=== PATIENT | male | born 1945 | race Hispanic/Latino ===

== ENCOUNTER 2018-01-26 09:02 | Outpatient (CLI) | payer MEDICARE | END 2018-01-26 09:03 | disposition home or self-care (01) | LOC: BICRAD 09:02 | PROVIDERS: ATTEND Nurse Practitioner Family | DX: R19.09 Other intra-abdominal and pelvic swelling, mass and lump (principal); I81 Portal vein thrombosis; K80.20 Calculus of gallbladder without cholecystitis without obstruction | CPT/HCPCS: 76700 ==

== ENCOUNTER 2018-02-01 17:40 | Inpatient (IN) | payer MEDICARE ==
[~2018-02-01 17:40] MED LIST: ISOVUE-370 76%-LOCM 1 ML ONE; Iopamidol 370 76% 50 ML VIAL FS ONE
[2018-02-01 18:41] LABS: INR-International Normal Ratio 1.4; PTT 34.5 SEC (22.9-36.1)
[2018-02-01 18:43] LABS: #Eosinphils 0.2 thou/uL (0.0-0.7); #Lymphocytes 1.7 thou/uL (1.20-3.40); #Monocytes 0.7 thou/uL (0.11-0.59); #Neutrophils 5.4 thou/uL (1.40-6.50); %Basophils 0.6 % (0.0-1.0); %Eosinophils 2.4 % (0.0-10.0); %Lymphocytes 20.7 % (21.0-51.0); %Monocytes 8.8 % (0.0-10.0); %Neutrophils 67.5 % (42.0-75.0); Hemoglobin 10.6 g/dL (14.0-18.0); Mean Corpuscular HGB CONC 32.5 g/dL (32.0-36.0); Mean Corpuscular Hemoglobin 31.8 pg (27.0-31.0); Mean Corpuscular Volume 97.9 fl (80.0-94.0); Mean Platelet Volume 7.4 fL (7.4-10.4); Platelet Count 262 thou/uL (130-400); RBC Distribution Width 16.4 % (11.5-14.5); Red Blood Cell (RBC) Count 3.34 mill/uL (4.70-6.10)
[2018-02-01] MEDS ORDERED: Octreotide Acetate 1,250 MCG in Sodium Chloride 0.9% 250 ML 250 ML IVPB SCH ×2 (20:00→22:01)
[2018-02-01 20:11] LABS: Iron 39 ug/dL (65-175); Iron Binding Capacity, Total 219 mcg/dL (261-462)
[2018-02-01 20:27] LABS: #Eosinphils 0.1 thou/uL (0.0-0.7); #Lymphocytes 1.3 thou/uL (1.20-3.40); #Monocytes 0.6 thou/uL (0.11-0.59); #Neutrophils 5.7 thou/uL (1.40-6.50); %Basophils 0.6 % (0.0-1.0); %Eosinophils 1.9 % (0.0-10.0); %Lymphocytes 16.2 % (21.0-51.0); %Monocytes 8.1 % (0.0-10.0); %Neutrophils 73.2 % (42.0-75.0); Hemoglobin 11.2 g/dL (14.0-18.0); Mean Corpuscular HGB CONC 33.3 g/dL (32.0-36.0); Mean Corpuscular Hemoglobin 32.6 pg (27.0-31.0); Mean Corpuscular Volume 97.9 fl (80.0-94.0); Mean Platelet Volume 7.1 fL (7.4-10.4); Platelet Count 288 thou/uL (130-400); Red Blood Cell (RBC) Count 3.42 mill/uL (4.70-6.10); White Blood Cell (WBC) Count 7.7 thou/uL (4.8-10.8)
--- NOTE | 2018-02-01 20:45 | ULT ---
ULTRASOUND ABDOMEN LIMITED: (RIGHT UPPER QUADRANT) 02/01/2018 HISTORY: A 72-year-old male with generalized abdominal pain. Dr. De discussed the findings by telephone with Dr. Goldsmith at the time of this dictation. TECHNIQUE: FINDINGS: There is clot in the upper portion of the portal vein. The common duct is dilated to 12 mm. The liver has diffusely very abnormal, very heterogeneous echogenicity and echotexture, including mul tiple probable small nodules. There is no hydronephrosis of the right kidney. Most of the pancreas is obscured by shadowing from bowel gas. There is a large number of gallstones, ranging in size from a few millimeters up to slightly greater than 1 cm. The gallbladder chester are diffusely at least mildly thickened, slightly greater than 3 mm . Unable to elicit a sonographic Anderson sign because the patient is medicated. IMPRESSION: 1. Portal vein thrombosis. 2. Evidence of biliary obstruction at the common duct. 3. Very abnormal liver, either diffuse, very extensive hepatic metastases or infiltrative hepatocel lular carcinoma. 3. Cholelithiasis. 4. Unable to determine whether or not there is acute cholecystitis. OTILIA Jiménez POS: [facility]
[2018-02-01 21:12] LABS: Ferritin 200.38 ng/mL (22-322)
[2018-02-01] MEDS ORDERED: Ondansetron HCl/PF 4 MG/2 ML Vial IVP PRN (21:53)
[2018-02-01] MEDS ORDERED: Ondansetron ODT 4 MG TAB SL PRN (21:53)
[2018-02-01] MEDS ORDERED: Pantoprazole 80 MG, Admixture Fee 1 EACH in Sodium Chloride 0.9% 100 ML IVP SCH (22:00)
[2018-02-01] MEDS: Sodium Chloride 0.45% 1,000 ML IV SCH (22:29)
--- NOTE | 2018-02-01 22:56 | CT ---
CT ABDOMEN WITH CONTRAST CT PELVIS WITH CONTRAST: DATE: 02/01/2018 TIME: 9:32 p.m. HISTORY: A 72-year-old male with generalized abdominal pain and abnormal ultrasound. TECHNIQUE: IV injection of iodinated contrast media: Administered. Oral contrast media: Not administered. FINDINGS: There is multifocal thrombus in the left portal vein, including its branches. There is also multifoc al thrombus in the right portal vein. There is thrombus filling much of the lumen of the superior me senteric vein, causing occlusion or almost occlusion, and in a branch extending superiorly from the j unction of the main portal vein and the superior mesenteric vein, connected to multiple varices, invo lving the region of the gastrohepatic ligament. These are connected to varices around the gastroesop hageal junction. There is mural thickening of the gallbladder. There are multiple gallstones, a few millimeters in si ze, in the gallbladder fundus. There is a 10 mm calcified gallstone near the gallbladder neck. Ther e is pericholecystic free fluid and/or edema. There are nonopacified branching structures throughout the left lobe and especially the right lobe of the liver, which could either represent intrahepatic biliary ductal dilation. The common duct is di lated (at least 12 mm on the ultrasound). There is a cluster of multiple heterogeneously enhancing m asses in the inferior aspect of the right lobe of the liver, involving hepatic segments 5 and 6. The re is an approximately 3 x 2.5 x 2.5 cm heterogeneous density round mass near the junction between he patic segment 4A and 8. There is diffuse mild dilation of the entire pancreatic duct. No obvious mass at the pancreatic head is visualized. There is a small to moderate amount of free fluid within the dependent, posterior aspect of the intra pelvic cavity, posterior to the urinary bladder and around the rectum. There is edema throughout the mesentery, and a small amount of free fluid along the bilateral paracolic gutters. No small bowel d ilation. Oral contrast material has not yet reached the colon. No pleural effusion. No pneumoperit oneum identified. No abdominal aortic aneurysm. No adrenal mass. IMPRESSION: 1. Portal vein thrombosis involving the left and right main branches of the portal vein. 2. Thrombosis of the superior mesenteric vein. 3. Thrombosis of a varix connected to the junction between the portal vein and the superior mesenter ic vein. 4. Multiple varices, especially along the gastrohepatic ligament. 5. Multiple liver masses, mostly in the right lobe, highly suspicious for malignancy, either liver m etastases or multicentric hepatocellular carcinoma. 6. Cholelithiasis. 7. The possibility of acute cholecystitis is raised. 8. Diffuse dilation of the biliary tree is evidence for obstruction of the common bile duct, perhaps by choledocholithiasis. OTILIA Jiménez POS: [facility]
[2018-02-01] MEDS: cefTRIAXone\\ROCEPHIN 1 GM in Sodium Chloride 0.9% 100 ML IVPB SCH (23:00)
[2018-02-01] MEDS: Pantoprazole 80 MG in Sodium Chloride 0.9% 100 ML IVP SCH (23:01)
[2018-02-02 00:51] LABS: #Eosinphils 0.1 thou/uL (0.0-0.7); #Monocytes 0.7 thou/uL (0.11-0.59); #Neutrophils 5.5 thou/uL (1.40-6.50); %Basophils 0.4 % (0.0-1.0); %Eosinophils 1.6 % (0.0-10.0); %Neutrophils 74.9 % (42.0-75.0); Hemoglobin 9.9 g/dL (14.0-18.0); Mean Corpuscular HGB CONC 32.2 g/dL (32.0-36.0); Mean Corpuscular Hemoglobin 31.7 pg (27.0-31.0); Mean Corpuscular Volume 98.2 fl (80.0-94.0); Mean Platelet Volume 7.4 fL (7.4-10.4); Platelet Count 250 thou/uL (130-400); Red Blood Cell (RBC) Count 3.12 mill/uL (4.70-6.10); White Blood Cell (WBC) Count 7.3 thou/uL (4.8-10.8)
[2018-02-02 01:28] LABS: Hep A IgM AB Non-Reactive (NonReactive); Hep B Core Total Ab Non-Reactive (NonReactive); Hep B Surf AB Non-Reactive (NonReactive); Hep B Surf Ag Non-Reactive S/CO (NonReactive); Hepatitis B Core IGM Abs Non-Reactive (NonReactive)
--- NOTE | 2018-02-02 01:39 | CON ---
DATE OF CONSULTATION: 02/01/2018 CHIEF COMPLAINT: Weakness and vomited black material. HISTORY OF PRESENT ILLNESS: Mr. Patten is a 72-year-old man, who vomited a reddish black material s tarting early this morning, once at 4:00 a.m. and once at 6:00 a.m. He had a black stool later today as well. He has had some periumbilical abdominal pain over the last couple of weeks that last for a few minutes at a time several times throughout the day. He has had some diarrhea once per day over the last couple of weeks as well and he has urgency after eating. He has had no chest pain or shortn ess of breath. He has had some gradual weight loss over several years, but his son believes his weig ht has been stable over the last 6 months or so. The abdominal pain is more of an aching discomfort. PAST MEDICAL HISTORY: Hypertension and alcoholism. PAST SURGICAL HISTORY: Hernia repair x2 and neck surgery. FAMILY HISTORY: Positive for pancreatic cancer in his brother and his brother's son. SOCIAL HISTORY: He drinks 12-pack per day. He smokes a pack of cigarettes per day. No drugs. ALLERGIES: No known drug allergies. MEDICATIONS: Benazepril 10 mg daily. REVIEW OF SYSTEMS: Negative x10 systems reviewed except as stated in the history of present illness. He has had generalized weakness over the last couple of weeks. PHYSICAL EXAMINATION: VITAL SIGNS: Pulse 90, blood pressure 88/49, temperature 97.9. GENERAL: He is jaundiced. He is in no acute distress. He is awake and alert. HEENT: His eyes have scleral icterus. Oropharynx is clear, without lesions. He is edentulous. NECK: There is no cervical or supraclavicular lymphadenopathy. LUNGS: Clear to auscultation bilaterally. HEART: Regular rate and rhythm. ABDOMEN: Soft, nontender. He has an enlarged liver and also in the epigastric region there is a fir mness in this area, suggestive of possible mass versus hepatomegaly or organomegaly in that area. EXTREMITIES: No lower extremity edema. RECTAL: Reveals normal prostate and some black liquidy stool in the vault. LABORATORY DATA: Sodium 135, potassium 3.6, chloride 100, CO2 of 21, BUN 33, creatinine 0.78, biliru bin 12.7, AST 221, ALT 43, alkaline phosphatase 160, albumin 2.9. INR 1.4. White blood cell count 8 .0, hemoglobin 10.6, platelets 262, MCV 97.9. IMPRESSION: 1. Acute upper gastrointestinal bleed, presenting with hematemesis and melena. His hemoglobin is 10 .6. The only baseline hemoglobin is from 2012 when his hemoglobin was 17. He does have some hypoten filomena with this with a blood pressure in the 80s/40s. He is receiving fluid resuscitation for that. Given the history of alcohol abuse and elevated liver tests, variceal bleed is possible. We will als o need to evaluate for peptic ulcer or gastritis. 2. Jaundice. With elevated AST and heavy alcohol abuse, this is consistent with an acute alcoholic hepatitis. This could be on top of underlying cirrhosis; however, he does not have low platelets and does not have obvious spider angiomas. 3. Hepatomegaly and fullness in the epigastric region by physical exam. Rule out a mass in this are a. He does have a brother who had pancreatic cancer and his brother's son had pancreatic cancer. RECOMMENDATIONS: 1. Octreotide drip. 2. Proton pump inhibitor drip. 3. We will send labs for further evaluation for chronic liver disease including viral hepatitis pane l and autoimmune markers. 4. CT scan of the abdomen and pelvis to evaluate for pancreatic mass and evaluate for obvious nodula rity of the liver. 5. EGD tomorrow. 6. Follow trend of the hemoglobin.
[2018-02-02 01:53] LABS: HBCM Index 0.08 S/CO (0-0.79)
--- NOTE | 2018-02-02 02:21 | HP ---
PRIMARY CARE PHYSICIAN: Dr. Meyer at [facility] in [place]. CHIEF COMPLAINT: Vomiting blood as well as having dark stools. HISTORY OF PRESENT ILLNESS: Mr. Patten is a very pleasant 72-year-old gentleman that has a history of heavy alcohol use over several decades and also history of hypertension. He was in his usual state of health until this morning he says about 4:00 a.m., he got up and threw up twice. He says it was some darkish colored material. There were also some reddish hints in it as well. He denies having any nausea or abdominal pain during this time. He says that he went back to sleep and then about 6:00 a.m. he got up once again and vomited as well. He says it was again dark and red. Also, during this time, he has been having dark stools off and on for the past 2 weeks. He says that the stools are more or less diarrhea-like and dark in color. He also admitted to having some abdominal pain, he was having this pain off and on for the past couple of weeks and had planned to see a supervisor in circuit testing to have this evaluated; however, this happened prior to this occurrence at this admission. He also has been feeling weak as well. He denies any dizziness or feeling lightheaded. However, he does say that his appetite has diminished. He seems like every time he tries to eat, he will feel an urge to go the bathroom. He says that he has lost a significant amount of weight, it is hard to tell exactly the time frame. He says he was weighing about 140 pounds about 6 months ago and now weighs about 110. Otherwise, no other known complaints. No fevers or chills. He says that his last drink was Thursday. No history of any alcohol withdrawal. He was evaluated in the ER, he was found to have melanotic stools and he has a significant drop in his hemoglobin from prior and he is being admitted for further evaluation and treatment. REVIEW OF SYSTEMS: Constitutional: Again, there have been no fevers, no chills , no night sweats. He has had a significant weight loss. HEENT: He denies any headache, no dizziness, no visual changes, no sore throat, rhinorrhea, no neck pain, no adenopathy. Pulmonary: He says he has an occasional cough, primarily with smoking. No wheezing or shortness of breath. Cardiovascular: He denies any chest pain, shortness of breath, PND, orthopnea. Gastrointestinal : As the history of present illness. Genitourinary: No urinary frequency, no hematuria. Musculoskeletal: No complaints of muscle pains or joint pains. Neurologic: No focal weakness, numbness, no seizures. Psychiatric: No symptoms of anxiety or depression. Skin and Integument: He has noted some yellowing of his skin, he says just in the last day or two. No rashes, no erythema. PAST MEDICAL HISTORY: Significant for hypertension and alcohol abuse. PAST SURGICAL HISTORY: He has had a hernia repair x2 as well as what sounds like a cervical spine surgery. ALLERGIES: No known drug allergies. FAMILY HISTORY: He had a brother with pancreatic cancer as well as a nephew. SOCIAL HISTORY: He admits to drinking at least a 12 pack of beer almost daily for several decades. He smokes a pack a day for at least 50 years. He is . He has 3 children. He wishes to be a [employer] and his son is his surrogate decision maker. MEDICATIONS: Benazepril 10 mg daily. PHYSICAL EXAMINATION: GENERAL: He is alert and oriented. He appears to be in no acute distress. VITAL SIGNS: Blood pressure was 82/53, heart rate is 90, respiratory rate of 20 , temperature is 97.7, O2 sat was 91% on room air. HEENT: His pupils are equal, round, and reactive. Sclerae are icteric. Throat : There is no erythema. Slightly dry mucous membranes. NECK: There was no appreciable adenopathy and no bruits. LUNGS: He did have some mild expiratory rhonchi, but no rales. CARDIOVASCULAR: He has a normal S1, S2. I did not appreciate an S3 or S4. No murmurs, clicks, no rubs. ABDOMEN: Slightly distended, it is soft. It was nontender. Positive for bowel sounds. He has got a significantly enlarged liver span significant about 4-5 cm below the right costal margin and also a fullness in the mid epigastric region. There is no rebound or guarding. EXTREMITIES: He has got significant muscle wasting. There was no edema and palpable pulses. LABORATORY RESULTS: White blood cell count was 8, hemoglobin 10.6, hematocrit is 32.7, and platelet count is 262. The sodium is 135, potassium 3.6, chloride is 100, CO2 is 21, BUN of 33, creatinine of 0.78, glucose is 78, AST is 221, ALT is 43. His bilirubin was 12.7, albumin 2.9. He had an ultrasound several days prior to admission in which it was noted to have a very heterogeneous liver. There was trace ascites and multiple cholelithiasis and fairly extensive thrombus involving the main portal vein. This was done on 01/26/2018. ASSESSMENT AND PLAN: This is a pleasant 72-year-old gentleman who presents to the emergency room with hematemesis. This is in the setting of multiple years of alcohol abuse, but no known history of cirrhosis. The patient will be admitted to the IMCU. He has been already placed on octreotide and Protonix drip. Gastroenterology will be consulted. We will monitor his H&H and transfuse as needed. The patient will also be placed on Rocephin, given the possibility for cirrhosis as well as he may have ascites. Unfortunately, due to the acute bleed, he will not be anticoagulated for the findings of the possible hepatic portal vein thrombosis on the ultrasound on 01/26/2018. This will need to be deferred and evaluated further. Otherwise, the patient will be monitored in the IMCU and further recommendations from GI are to follow. VANIA
[2018-02-02 02:24] LABS: HBSAg Index 0.15 S/CO (0-0.99); Hep B Core Total Index 0.12 S/CO (0-0.79)
[2018-02-02 02:25] LABS: HBSAB Concentration 1.14 mIU/mL
[2018-02-02 02:26] LABS: Hep A IgM S/CO 0.12 S/CO (0-0.79)
[2018-02-02 02:28] LABS: Hep C Index 13.33 S/CO (0-0.79)
[2018-02-02 02:29] LABS: Hep C IgG Ab Reflex HepC Qnt (NonReactive)
[2018-02-02 05:01] LABS: Anion Gap 13 mmol/L (10-20); BUN (Urea Nitrogen) 28 mg/dL (8.4-25.7); Calc. Creatinine Clearance 56 mL/min (70-130); Calcium 7.9 mg/dL (7.8-10.44); Carbon Dioxide 20 mmol/L (23-31); Chloride 105 mmol/L (98-107); Estimated GFR-MDRD Greater than 90; Glucose 72 mg/dL (83-110); Potassium 3.6 mmol/L (3.5-5.1); Sodium 134 mmol/L (136-145)
[2018-02-02] MEDS: Sodium Chloride 0.45% 1,000 ML IV SCH (05:49)
[2018-02-02] MEDS: Pantoprazole 80 MG in Sodium Chloride 0.9% 100 ML IVP SCH (08:28)
--- NOTE | 2018-02-02 08:43 | PDOC.PN ---
- Subjective Encounter Start Date: 02/02/18 Encounter Start Time: 08:38 Mr. Patten was seen today in follow-up. He has not had any hematemesis this morning. He denies any melana, and he has not had abdominal pain. - Objective Resuscitation Status: Resuscitation Status FULL:Full Resuscitation MAR Reviewed: Yes Vital Signs & Weight: Vital Signs (12 hours) Temp Pulse Resp BP Pulse Ox 02/02/18 08:00 98.6 F 75 17 100 02/02/18 07:28 98.6 F 75 17 89/47 L 100 02/02/18 04:00 98.1 F 81 18 100/55 L 100 02/02/18 03:04 100 02/02/18 01:46 89 18 100 02/02/18 00:00 98.0 F 85 18 97/52 L 98 02/01/18 22:30 98.0 F 85 18 99 02/01/18 21:55 97.9 F 94 20 112/58 L 100 Weight Weight 110 lb 14.4 oz I&O: 02/01/18 02/02/18 02/03/18 06:59 06:59 06:59 Intake Total 1510 Output Total 450 Balance 1060 Result Diagrams: 02/02/18 00:28 02/02/18 04:20 Phys Exam - Physical Examination HEENT: PERRLA sclera are jaundice Respiratory: no wheezing, no rales, no rhonchi, clear to auscultation bilateral Cardiovascular: RRR, no significant murmur, no rub Gastrointestinal: soft, positive bowel sounds + RUQ tenderness, Liver span is enlarged + fullness in the epigastric region Musculoskeletal: no edema Dx/Plan (1) GI bleed Code(s): K92.2 - GASTROINTESTINAL HEMORRHAGE, UNSPECIFIED Status: Acute (2) Acute blood loss anemia Code(s): D62 - ACUTE POSTHEMORRHAGIC ANEMIA Status: Acute (3) Alcohol abuse Code(s): F10.10 - ALCOHOL ABUSE, UNCOMPLICATED Status: Acute (4) Liver mass, right lobe Code(s): R16.0 - HEPATOMEGALY, NOT ELSEWHERE CLASSIFIED Status: Acute (5) Hypertension Code(s): I10 - ESSENTIAL (PRIMARY) HYPERTENSION Status: Chronic - Plan * Acute blood loss anemia- his H&H dropped slightly overnight, but will not require transfusion at this point- Continue Octreotide drip, and Protonix drip * Plan for EGD today * CT scan results noted- findings suggestive of liver mass, and concerning for hepatocellular carcinoma- will await further GI recommendations * Will monitor for signs of withdrawal, and place on ASE protocol * HTN- blood pressure- lower side- will monitor - Benazepril is on hold.
--- NOTE | 2018-02-02 09:45 | CON ---
DATE OF CONSULTATION: 02/02/2018 This is a 72-year-old gentleman who was brought to the hospital with melena and hemate mesis. He is in the [facility] and the reason for consult. The patient says he has been drinking up to 6 beers on a regular basis for most of his life. Denies any substance abuse. He is weak, he has lost considerable weight. PAST MEDICAL HISTORY: Pertinent for otherwise hypertension. It is unclear who his primary care doct or is. PAST SURGICAL HISTORY: Neck operation and a hernia operation. SOCIAL HISTORY: Tobacco; a pack a day. Alcohol as noted. 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 REVIEW OF SYSTEMS: Otherwise, 10-point unremarkable. PHYSICAL EXAMINATION: GENERAL: He is jaundiced. VITAL SIGNS: Blood pressure 80/60, pulse rate of 80, sats 100%. CHEST: Chest reveals no wheezing or crackles. CARDIAC: Normal S1-S2. No gallops. ABDOMEN: Soft. No masses. He had a CT done of his abdomen which showed multifocal thrombosis in the portal vein, thrombosis in the right portal vein. Multiple ____ was seen, gallbladder was thick. There are multiple gallstones . There is thrombosis of the superior and the septic ring. Multiple liver masses. Right lobe suspicio n of malignancy. Liver mets. There is evidence of dilation of the biliary tree consistent with obst ruction of the common bile duct. LABORATORY DATA: White count 7000, H&H 9 and 30, platelet count 250. His electrolytes are normal. Sodium 134. Hepatitis C antibody was high. IMPRESSION: 1. History of hematemesis and melena. 2. Marked abnormal CT of the abdomen suggestive of liver masses, extensive hepatic vein thrombosis. 3. Tobacco abuse. 4. Marked weight loss. PLAN: Awaiting GI input. In the meantime he was started empiric antibiotics. Octreotide has been i nitiated and Protonix. EGD to be performed today. Pulmonary Critical Care will follow while in the [facility]. This is a 70 minute consultation note, 50% spent in direct patient care.
--- NOTE | 2018-02-02 11:00 | RAD ---
PORTABLE AP CHEST RADIOGRAPH: Date: 02-02-18 History: COPD. Comparison: 08-08-13 FINDINGS: Cardiac silhouette is within normal limits. Cardiac silhouette and pulmonary vasculature are within n ormal limits. There are irregular linear and parenchymal opacities seen within the right upper lung z one with asymmetric right apical pleural thickening. Scattered linear densities are also seen within the left upper and mid lung zones as well as right lung base. Findings are likely related to chronic lung changes given stability when compared to study in 2013. Calcified granuloma is again seen in the left midlung zone. Osteopenia is present. No other interval change. IMPRESSION: 1. Findings likely related to chronic lung changes including stable area of irregular parenchymal opa city as well as pleural based density in the right upper lobe and right lung apex. 2. No acute cardiopulmonary process. 3. Osteopenia. POS: [facility]
[2018-02-02] MEDS ORDERED: Ondansetron HCl/PF 4 MG/2 ML Vial IVP PRN (12:34)
--- NOTE | 2018-02-02 12:58 | OP ---
DATE OF PROCEDURE: 02/02/2018 PROCEDURE: Esophagogastroduodenoscopy (diagnostic). INDICATION FOR PROCEDURE: Hematemesis, recent diagnosis of cirrhosis. DESCRIPTION OF PROCEDURE: After the risks and benefits of the procedure were explained to the patien t including risks of bleeding, infection, perforation, reactions to anesthesia and/or pain, informed consent was obtained. The patient was then taken to the endoscopy suite where deep sedation was admi nistered via propofol and anesthesia support. After adequate sedation was achieved, the standard gas troscope was then introduced into the mouth with intubation of the esophagus, stomach, and the proxim al small intestine with the findings listed below. The patient tolerated the procedure well with no immediate perioperative complications. FINDINGS: Esophagus: Normal-appearing mucosa was seen in both the proximal and mid esophagus, small (grade 1) esophageal varices were seen in the distal esophagus just proximal to the GE junction. There was no evidence of red sung sign or other high-risk stigmata of active/recent bleeding. No intervention was taken on these varices given their small size and lack of evidence of bleeding. The diaphragmatic p inch was seen at 42 cm while the GE junction was well seen at 39 cm denoting a 3 cm hiatal hernia. Stomach: Diffuse mucosal erythema was seen in the gastric cardia, fundus, body, incisura, and antrum in a mosaic pattern that was mildly friable to the passage of the gastroscope, especially upon sucti oning the mucosa itself. There was no evidence of active/recent bleeding seen during this portion of the examination. There is no evidence of erosions, ulcerations, or mass lesions. However, on gastr ic retroflexion, nodular-appearing mucosa was seen at the GE junction with a purplish hue concerning for the presence of gastric varices. Duodenum: Normal-appearing mucosa was seen in both the duodenal bulb and second portion of the duode num. There was no evidence of erosions, ulcerations, mass lesions, or active/recent bleeding. IMPRESSION: 1. Moderate portal hypertensive gastropathy that was friable to the passage of the gastroscope (like ly source of recent hematemesis). 2. Small esophageal varices (grade 1) without high-risk stigmata of bleeding. 3. Possible gastric varices also without high-risk stigmata of bleeding. 4. A 3 cm hiatal hernia. RECOMMENDATIONS: 1. We would continue patient on PPI, but transfer to twice daily dosing 40 mg each and can discontin ue the PPI drip. 2. Discontinue the octreotide drip, given lack of evidence of variceal bleeding at this time. 3. We would consider placing patient on nonselective beta blockade for the presence of moderate port al hypertensive gastropathy. 4. Continue to monitor clinically for signs of active gastrointestinal bleeding. 5. We will continue to trend H and H and transfuse as necessary to maintain an H and H of 03/06. 6. We would continue ceftriaxone 1 gram daily for at least 5 days total therapy given evidence of re cent gastrointestinal bleeding in a cirrhotic patient. 7. Follow up on labs for chronic liver disease. 8. Follow up on CT scan of the abdomen and pelvis to evaluate for possible pancreatic mass and evalu ate for nodularity of the liver. We will continue to follow. Please call with any questions.
[2018-02-02] MEDS ORDERED: Lidocaine 1% PF 5 ML VIAL ONE (13:14)
[2018-02-02] MEDS ORDERED: PROPOFOL 200 MG/20 ML VIAL ONE (13:14)
[2018-02-02 13:53] VITALS: BMI 19.0
--- NOTE | 2018-02-02 14:41 | PQF ---
CLINICAL DOCUMENTATION IMPROVEMENT CLARIFICATION FORM: ICD-10 Updated PLEASE DO AN ADDENDUM TO THE PROGRESS NOTE WITH ANY DOCUMENTATION UPDATES OR ADDITIONS AND CARRY THROUGH TO DC SUMMARY. THANK YOU. Date: 02/02/18 ATTN: DR. SPICER Please exercise your independent, professional judgment in responding to the clarification form. Clinical indicators are provided on the bottom of this form for your review Please check appropriate box(s): [ X ] Protein Calorie Malnutrition: [ ] Mild [ X] Moderate [ ] Severe [ ] Other Malnutrition (please specify) __ [ ] Underweight without malnutrition [ ] Cachexia [ ] Other diagnosis [ ] Unable to determine In addition, please specify: Present on Admission (POA): [X ] Yes [ ] No [ ] Unable to determine CLINICAL INDICATORS - SIGNS / SYMPTOMS / LABS DIETARY ASSESSMENT 02/02: "KCAL AND G PROTEIN NEEDS NOT MET" BMI 19.0 RISKS: ALCOHOL ABUSE RECENT WEIGHT LOSS MULTIPLE LIVER MASSES WITH HIGH SUSPICION FOR MALIGNANCY RECENT GI BLEEDING TREATMENT: DIETARY CONSULTS DIETARY RECOMMENDATIONS FOR DIETARY SUPPLEMENTS ONCE DIET ADVANCED GI CONSULTS ANTIEMETICS Moderate Malnutrition (in acute illness) Energy Intake: <75% of estimated energy requirement for > 7 days Weight Loss: 1-2%/1 week; 5%/ 1 month; 7.5%/3 months Other: mild body fat loss; mild muscle mass loss; mild fluid accumulation; Severe Malnutrition (in acute illness) Energy Intake: < 50% of estimated energy requirement for > 5 days Weight Loss: >1-2%/1 week; >5%/1 month; >7.5%/3 months Other: moderate body fat loss; moderate muscle mass loss; moderate- severe fluid accumulation; 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 chief deputy coroner strength Moderate Malnutrition (in chronic illness) Energy Intake: <75% of estimated energy requirement for >1 month Weight Loss: 5%/1 month; 7.5%/3 months; 10%/6 months; 20%/1 year Other: mild body fat loss; mild muscle mass loss; mild fluid accumulation Severe Malnutrition (in chronic illness) Energy Intake: <75% of estimated energy requirement for >1 month Weight Loss: >5%/1 month; >7.5%/3 months; >10%/6 months; >20%/1 year Other: severe body fat loss; severe muscle mass loss; severe fluid accumulation ; measurably reduced chief deputy coroner strength (This form is maintained as a part of the permanent medical record) 2014 [employer]. All Rights Reserved ISI [email or web address] Office: [phone] [facility]
[2018-02-02] MEDS ORDERED: Lorazepam 0.5 MG TAB PO PRN (15:50)
[2018-02-02] MEDS ORDERED: Lorazepam 2 MG/ML VIAL SLOW IVP PRN (15:50)
[2018-02-02] MEDS: Pantoprazole 40 MG VIAL IVP SCH (20:33)
[2018-02-02] MEDS: cefTRIAXone\\ROCEPHIN 1 GM in Sodium Chloride 0.9% 100 ML IVPB SCH (22:42)
[2018-02-03 05:26] LABS: #Basophils 0.1 thou/uL (0.0-0.2); #Eosinphils 0.3 thou/uL (0.0-0.7); #Lymphocytes 0.9 thou/uL (1.20-3.40); #Monocytes 0.6 thou/uL (0.11-0.59); #Neutrophils 4.1 thou/uL (1.40-6.50); %Basophils 1.7 % (0.0-1.0); %Eosinophils 5.4 % (0.0-10.0); %Lymphocytes 14.6 % (21.0-51.0); %Neutrophils 68.4 % (42.0-75.0); Hemoglobin 10.3 g/dL (14.0-18.0); Mean Corpuscular HGB CONC 32.5 g/dL (32.0-36.0); Mean Corpuscular Hemoglobin 32.3 pg (27.0-31.0); Mean Corpuscular Volume 99.4 fL (78.0-98.0); Mean Platelet Volume 7.4 fL (7.4-10.4); Platelet Count 245 thou/uL (130-400); RBC Distribution Width 17.7 % (11.5-14.5); White Blood Cell (WBC) Count 5.9 thou/uL (4.8-10.8)
[2018-02-03] MEDS: Multivit, Therapeutic 1 TAB PO SCH (08:37)
[2018-02-03] MEDS: Pantoprazole 40 MG VIAL IVP SCH ×2 (08:37→20:29)
[2018-02-03] MEDS: Folic Acid 1 MG TAB PO SCH (08:37)
--- NOTE | 2018-02-03 08:46 | PRG ---
DATE OF SERVICE: 02/03/2018 He is awake, alert, responsive. PHYSICAL EXAMINATION: VITAL SIGNS: Blood pressure is stable, the low 90/60, sats 100% on 1 liter, respiration 24, temperat ure 97. CHEST: Chest revealed no wheezing or crackles. CARDIAC: Normal S1, S2, no gallops. ABDOMEN: Soft. No masses. LABORATORY: White count 5000, H&H 10 and 30, platelet count 45, tumor marker is markedly elevated. Hepatitis A antibody positive. IMPRESSION: 1. Multiple liver masses. 2. Gastrointestinal bleed. 3. Cirrhosis. PLAN: Pulmonary will follow while in the [facility]. Continue care as per GI. PT and supportive care. P rotonix.
--- NOTE | 2018-02-03 10:08 | PDOC.PN ---
- Subjective Encounter Start Date: 02/03/18 Encounter Start Time: 10:06 Mr. Patten was seen today in follow-up. He has not had any hematemesis today. He has noted some dark stools yesterday and today. He denies abdominal pain. - Objective Resuscitation Status: Resuscitation Status FULL:Full Resuscitation MAR Reviewed: Yes Vital Signs & Weight: Vital Signs (12 hours) Temp Pulse Resp BP Pulse Ox 02/03/18 07:41 97.5 F L 69 24 H 100 02/03/18 07:27 97.5 F L 69 24 H 85/48 L 100 02/03/18 03:42 97.8 F 69 19 90/46 L 100 02/02/18 23:55 98.0 F 75 18 92/51 L 100 Weight Admit Weight 108 lb 3.2 oz Weight 109 lb 9.6 oz I&O: 02/02/18 02/03/18 02/04/18 06:59 06:59 06:59 Intake Total 1510 1600 Output Total 450 530 Balance 1060 1070 Result Diagrams: 02/03/18 04:32 02/02/18 04:20 Phys Exam - Physical Examination HEENT: PERRLA Respiratory: no wheezing, no rales, no rhonchi, clear to auscultation bilateral Cardiovascular: RRR, no significant murmur, no rub Gastrointestinal: soft, non-tender + hepatomegaly Musculoskeletal: no edema Dx/Plan (1) GI bleed Code(s): K92.2 - GASTROINTESTINAL HEMORRHAGE, UNSPECIFIED Status: Acute (2) Acute blood loss anemia Code(s): D62 - ACUTE POSTHEMORRHAGIC ANEMIA Status: Acute (3) Alcohol abuse Code(s): F10.10 - ALCOHOL ABUSE, UNCOMPLICATED Status: Acute (4) Liver mass, right lobe Code(s): R16.0 - HEPATOMEGALY, NOT ELSEWHERE CLASSIFIED Status: Acute (5) Hypertension Code(s): I10 - ESSENTIAL (PRIMARY) HYPERTENSION Status: Chronic - Plan * GI bleed- likely from esophageal varices.- he had no sigmata concerning for re -bleed, and the Octreotide drip has been discontinued * Continue Protonix twice a day * Liver Mass- AFP is elevated- likely hepatocellular Carcinoma- defer to GI * ontinue Rocephin until Thursday for SBP Prophylaxis * PT- to get him mobilized
[2018-02-03 11:25] LABS: ANA Symphony (Qualitative) Negative (Negative); EliA Vaculitis New Method **** NEW METHOD ****; dsDNA IgG Antibody 1.5 IU/mL (<10 Negative)
--- NOTE | 2018-02-03 18:27 | PRG ---
DATE OF SERVICE: 02/03/2018 SUBJECTIVE: Mr. Patten had one black stool today. He has no abdominal pain or other complaints cur rently. OBJECTIVE: VITAL SIGNS: Temperature 97.9, pulse 66, blood pressure 106/59. GENERAL: He is in no acute distress, alert and oriented x3. LUNGS: Clear to auscultation bilaterally. HEART: Regular rate and rhythm. ABDOMEN: Soft, nontender, nondistended, bowel sounds are present. EXTREMITIES: No lower extremity edema. LABORATORY DATA: Creatinine 0.81, alpha fetoprotein is 123,000. INR 1.4, his hepatitis C antibody w as positive. White blood cell count 5.9, hemoglobin 10.3, platelets 245. IMPRESSION: 1. Hepatocellular carcinoma. The markedly elevated alpha fetoprotein in conjunction with a CT showi ng multiple liver masses confirms the diagnosis. He will not require a liver biopsy. He is not a ca ndidate for transplant or given the size and numerous masses in the liver and with portal vein thromb osis, treatment is limited. Hematology will be consulted to discuss options of chemotherapy. 2. Alcohol abuse and hepatitis C antibody. 3. Cirrhosis. 4. Esophageal varices with possible gastric varix. The bleeding appeared to be more likely from por jamilah hypertensive gastropathy. This appears to be resolved for now. His hemoglobin is stable. RECOMMENDATIONS: 1. Oncology consultation tomorrow. 2. Depending on Oncology recommendations, we could potentially discharge home tomorrow.
[2018-02-03] MEDS: cefTRIAXone\\ROCEPHIN 1 GM in Sodium Chloride 0.9% 100 ML IVPB SCH (22:02)
[2018-02-04] MEDS: Folic Acid 1 MG TAB PO SCH (08:39)
[2018-02-04] MEDS: Multivit, Therapeutic 1 TAB PO SCH (08:39)
[2018-02-04] MEDS: Pantoprazole 40 MG VIAL IVP SCH (08:40)
--- NOTE | 2018-02-04 09:40 | PDOC.PN ---
- Subjective Encounter Start Date: 02/04/18 Encounter Start Time: 09:33 Mr. Patten was seen today in follow-up. He does not have any complaints. He denies any vomiting, he is not in pain. - Objective Resuscitation Status: Resuscitation Status FULL:Full Resuscitation MAR Reviewed: Yes Vital Signs & Weight: Vital Signs (12 hours) Temp Pulse Resp BP Pulse Ox 02/04/18 08:00 98 02/04/18 07:32 97.5 F L 84 18 135/69 96 02/04/18 03:58 97.7 F 68 19 105/55 L 96 02/04/18 00:00 98.0 F 70 18 99/53 L 97 Weight Admit Weight 108 lb 3.2 oz Weight 111 lb I&O: 02/03/18 02/04/18 02/05/18 06:59 06:59 06:59 Intake Total 1600 910 Output Total 530 370 Balance 1070 540 Result Diagrams: 02/03/18 04:32 02/02/18 04:20 Phys Exam - Physical Examination HEENT: PERRLA Respiratory: no wheezing, no rales, no rhonchi, clear to auscultation bilateral Cardiovascular: RRR, no significant murmur Gastrointestinal: soft, non-tender, positive bowel sounds Musculoskeletal: no edema Dx/Plan (1) GI bleed Code(s): K92.2 - GASTROINTESTINAL HEMORRHAGE, UNSPECIFIED Status: Acute (2) Acute blood loss anemia Code(s): D62 - ACUTE POSTHEMORRHAGIC ANEMIA Status: Acute (3) Alcohol abuse Code(s): F10.10 - ALCOHOL ABUSE, UNCOMPLICATED Status: Acute (4) Liver mass, right lobe Code(s): R16.0 - HEPATOMEGALY, NOT ELSEWHERE CLASSIFIED Status: Acute (5) Hypertension Code(s): I10 - ESSENTIAL (PRIMARY) HYPERTENSION Status: Chronic - Plan * Hepatocellular Carcinoma- Awaiting Oncology input, but it appears his cancer is advanced * GI- bleed- his H&H has been stable so far, and there has been no signs of recurrent bleed. * I spoke with the patient at his request with regards to his prognosis, and how to proceed. I told he he may be able to make a more informed decision after speaking with the Oncologist. He says he would rather " be at home " and says " he has lived his life and is planning to be arrangements for his children so they will know how to handle his possessions" I asked him about his code status and what he would want , given the new information regarding the Hepatocellular Carcinoma. He tells me he would NOT want to be resuscitated. Will therefore change his code status to DNR. ( ACP time 15 minutes) * Continue Rocephin for one more day for a total of 5 as recommended by Gastroenterology * Continue Protonix, and consider changing to p.o. * HTN- blood pressure is stable .
[2018-02-04 10:52] VITALS: TEMP 97.2
[2018-02-04 12:17] LABS: HCV log10 1.778 (.); Hep C PCR-Quant 60 IU/mL (.)
--- NOTE | 2018-02-04 12:29 | PRG ---
DATE OF SERVICE: 02/04/2018 SUBJECTIVE: This morning, awake, alert, and responsive. No pain, no discomfort, no shortness of sathish ath. OBJECTIVE: VITAL SIGNS: Sats are 90% on 1 liter, temperature 97, respirations 18, blood pressure 130/69. CHEST: Decreased breath sounds, no wheezing. CARDIAC: Normal S1 and S2. No gallops. ABDOMEN: Distended, ascites, enlarged liver. IMPRESSION: 1. Hepatitis. 2. Multiple liver masses, status post endoscopy. PLAN: The patient can be transferred out of the MICU. Await input from Oncology. Switch over to or al antibiotics.
--- NOTE | 2018-02-04 12:43 | CON ---
DATE OF CONSULTATION: 02/04/2018 REASON FOR CONSULTATION: Hepatoma. HISTORY OF PRESENT ILLNESS: Mr. Patten is a pleasant 72-year-old gentleman with a history of long-t erm alcohol use. He presented to the emergency room on with hemoptysis and melena. His bilirub in was 12.7. He was clearly jaundiced. He had an abdominal ultrasound performed, which showed a pos sible mass in portal vein thrombus. He then underwent an abdominal and pelvis CT. The portal vein t hrombus was confirmed and involved the left and right main branches of the portal vein. He had throm bosis of the superior mesenteric vein. He had thrombosis of the varix connected to the junction betw een the portal vein and the superior mesenteric vein. He had multiple liver masses, dilatation of th e biliary tree and multiple varices. He was seen by GI who performed an EGD. Again noted portal hyp ertensive gastropathy with esophageal varices and gastric varices. He was on a Protonix and octreoti de drip and AFP was performed and returned a value of 123,182. This was diagnostic for hepatocellula r carcinoma. We were asked to discuss possible options with the patient. PAST MEDICAL HISTORY: 1. Hypertension. 2. Alcohol use. PAST SURGICAL HISTORY: Hernia repair. ALLERGIES: No known drug allergies. HOME MEDICATIONS: Benazepril 10 mg daily. FAMILY HISTORY: A brother with pancreatic cancer. SOCIAL HISTORY: Single, lives alone, drinks at least a 12-pack of beer daily, 60-[id number]-vvpl history o f smoking, 3 grown children. REVIEW OF SYSTEMS: Constitutional: No fever, chills or night sweats. Positive for 30-pound weight loss. Eyes: No blurred or double vision. ENT: No pain, hoarseness, sore throat, or dysphagia. Ca rdiovascular: No chest pain, palpitations or syncope. Respiratory: Denies shortness of breath, dys pnea on exertion or orthopnea. Gastrointestinal: Positive for nausea, vomiting. No diarrhea or con stipation. Positive for occasional abdominal pain. Genitourinary: No dysuria or hematuria. Muscul oskeletal: No joint or back pain. Skin: No rash or pruritus. Hematological: Positive for bleedin g, no bruising. Neurologic: Positive for weakness, no headache, numbness, tingling or seizure activ ity. Psychiatric: No anxiety or depression. PHYSICAL EXAMINATION: VITAL SIGNS: Temperature is 97.5, pulse is 84, respiratory rate is 18, BP is 135/69. He is 96% on 1 liter. GENERAL: This is a chronically ill-appearing male, in no acute distress. HEENT: Normocephalic, atraumatic. Pupils are equal and reactive to light. He does have icteric scl erae. NECK: Supple. CARDIOVASCULAR: Regular rate and rhythm. LUNGS: Clear. ABDOMEN: Distended, nontender, bowel sounds are positive. He does have a palpable liver. He is jau ndiced. No rash. HEMATOLOGIC: There is no petechia or purpura. NEUROLOGICAL: Nonfocal. PSYCHIATRIC: The patient is alert and oriented and appropriate. PERTINENT LABORATORY AND X-RAYS: Current WBCs 5.9, hemoglobin 10.3, hematocrit 31.8, platelet count is 245,000. He has got 68% neutrophils, 15% lymphocytes. PT is 17, INR is 1.4, PTT is 34.5. Sodium is 134, potassium 3.6, chloride 105, CO2 is 20, BUN is 28, creatinine 0.81, calcium 7.9, total bilir ubin is 0.7, AST is 221, ALT is 43, alkaline phosphatase is 160. Serum total protein is 6.5, albumin 2.9, globulin 3.6. AFP is 123,182.4. Hepatitis C antibody positive. ASSESSMENT AND PLAN: 1. Hepatocellular carcinoma. 2. Hyperbilirubinemia. 3. Esophageal varices. 4. Gastrointestinal bleed. 5. Alcohol abuse. 6. Portal vein thrombosis. DISCUSSION: The patient has multiple poor prognostic factors including elevated bilirubin, alkaline phosphatase, weight loss, portal vein thrombosis, hepatitis C antibody and varices. He would unlikel y get any significant benefit from chemotherapy. He is certainly not a surgical candidate. This pamela e was discussed with Dr. Fay. We recommend hospice as it likely only has a few months to live. This was discussed in detail with the patient. He agrees and wishes to go home. Clinic information was provided should he change his mind and wish to discuss this further.
[2018-02-04 15:20] VITALS: BP 131/77
[2018-02-04 16:18] LABS: Smooth Muscle Total ABS 37 Units (0-19)
--- NOTE | 2018-02-05 02:36 | DIS ---
PRIMARY CARE PHYSICIAN: Dr. Meyer. DATE OF ADMISSION: 02/01/2018 DATE OF DISCHARGE: 02/04/2018 DISCHARGE DISPOSITION: Home. PRIMARY DISCHARGE DIAGNOSES: 1. Hepatocellular carcinoma. 2. Gastrointestinal bleed secondary to esophageal varices. 3. Alcohol abuse. 4. Hepatitis C infection. 5. Hypertension. DISCHARGE MEDICATIONS: Include Omnicef 300 mg twice a day for 3 days and benazepril 10 mg daily. PROCEDURES DONE DURING ADMISSION: The patient had a CT scan of the abdomen and pelvis, which demonst rated portal vein thrombosis involving the left and right main branches of the portal vein thrombosis of the superior mesenteric vein, thrombosis of the varix connected to the junction between the sofya l vein and the superior mesenteric vein. Multiple varices along the gastrohepatic ligament, multiple liver masses mostly in the right lobe which were highly suspicious for malignancy, cholelithiasis. There was diffuse dilatation of the biliary tree and possible choledocholithiasis. The patient had a n abdominal ultrasound in which there was portal vein thrombosis evidence of biliary obstruction of t he common duct, very abnormal liver, and cholelithiasis. The patient had an upper endoscopy in which there was grade 1 esophageal varices and portal gastropathy or hypertensive portal gastropathy, whic h was likely the source of the recent bleeding. CODE STATUS: DNR. ALLERGIES: No known drug allergies. HOSPITAL COURSE: Mr. Patten is a pleasant 72-year-old gentleman who presented to the emergency room with complaints of hematemesis as well as melena. He was admitted and evaluated by Gastroenterology . He had a CT scan of the abdomen and pelvis done, which demonstrated findings suspicious for liver cancer. An alpha fetoprotein level was done, which was extremely elevated. The level of which was 1 23,182. He underwent upper endoscopy, which showed a grade 1 esophageal varices as well as portal hy pertensive gastropathy. There was no stigmata of high risk of rebleeding. A nonselective beta block er was recommended but his blood pressure was too low to start this. He was evaluated by Oncology as the findings were consistent with hepatocellular carcinoma. However, it is likely that his liver di sease is extremely advanced and he would unlikely benefit from chemotherapy. The patient decided to forego any aggressive treatment and plans to go home on palliative care. He is therefore discharged home on 02/04/2018.
[2018-02-05 15:24] LABS: Alpha-1-Antitrypsin 160 mg/dL (90-200)
== END 2018-02-04 19:40 | disposition home or self-care (01) | DRG 391 ==
LOC: ERS 17:40 → IMCU/EMU 21:00
PROVIDERS: ADMIT Internal Medicine; ATTEND Internal Medicine
PROC: 0DJ08ZZ Inspection of Upper Intestinal Tract, Via Natural or Artificial Opening Endoscopic (ICD-10-PCS; principal; 2018-02-02)
DX: K31.89 Other diseases of stomach and duodenum (principal); I81 Portal vein thrombosis; I85.11 Secondary esophageal varices with bleeding; C22.0 Liver cell carcinoma; R64 Cachexia; Z68.1 Body mass index [BMI] 19.9 or less, adult; K76.6 Portal hypertension; D62 Acute posthemorrhagic anemia; E44.0 Moderate protein-calorie malnutrition; K92.2 Gastrointestinal hemorrhage, unspecified; Z66 Do not resuscitate; I86.4 Gastric varices; K70.10 Alcoholic hepatitis without ascites; K80.20 Calculus of gallbladder without cholecystitis without obstruction; F10.10 Alcohol abuse, uncomplicated; K44.9 Diaphragmatic hernia without obstruction or gangrene; B19.20 Unspecified viral hepatitis C without hepatic coma; K70.30 Alcoholic cirrhosis of liver without ascites; I95.9 Hypotension, unspecified; I10 Essential (primary) hypertension; F17.210 Nicotine dependence, cigarettes, uncomplicated; Z87.19 Personal history of other diseases of the digestive system; Z79.899 Other long term (current) drug therapy; Z80.42 Family history of malignant neoplasm of prostate
CPT/HCPCS: 36415; 71045; 74177; 76705; 80048; 80074; 82103; 82104; 82105; 82248; 82728; 83516; 83540; 83550; 85025; 86038; 86225; 86704; 86706; 86708; 86850; 86900; 86901; 87522; 94640; 94760; 96365; 96366; A4216; C9113; J0696; J2354; J7050; J7620

== ENCOUNTER 2018-02-10 23:45 | Inpatient (IN) | payer MEDICARE ==
[2018-02-11 00:42] LABS: ALT (SGPT) 173 U/L (8-55); AST (SGOT) 1038 U/L (5-34); Albumin 2.4 g/dL (3.4-4.8); Alkaline Phosphatase 175 U/L (40-150); Anion Gap 29 mmol/L (10-20); BUN (Urea Nitrogen) 76 mg/dL (8.4-25.7); Bilirubin, Total 22.5 mg/dL (0.2-1.2); CK (CPK) 317 U/L (30-200); Calc. Creatinine Clearance 0 mL/min (70-130); Calcium 8.8 mg/dL (7.8-10.44); Chloride 105 mmol/L (98-107); Estimated GFR-MDRD 24; Globulin 2.9 g/dL (2.4-3.5); Potassium 4.3 mmol/L (3.5-5.1); Protein, Total 5.3 g/dL (5.8-8.1); Sodium 139 mmol/L (136-145)
[2018-02-11 00:45] LABS: Troponin I 0.024 ng/mL (< 0.028)
[2018-02-11 00:46] LABS: INR-International Normal Ratio 3.1; PTT 44.1 SEC (22.9-36.1); Prothrombin Time 33.5 SEC (12.0-14.7)
[2018-02-11 00:49] LABS: Carbon Dioxide 9 mmol/L (23-31); Glucose 21 mg/dL (83-110)
[2018-02-11 00:49] LABS: CKMB 12.9 ng/mL (0-6.6)
[2018-02-11] MEDS ORDERED: Dextrose 50% Abboject 50 ML SYRINGE ONE (00:52)
[2018-02-11 01:01] LABS: Hemoglobin 6.4 g/dL (14.0-18.0); Lymphocytes 8 % (21-51); MDiff Complete? YES; Mean Corpuscular HGB CONC 31.8 g/dL (32.0-36.0); Mean Corpuscular Hemoglobin 32.6 pg (27.0-31.0); Mean Platelet Volume 7.5 fL (7.4-10.4); Metamyelocyte 1 % (0-0); Monocytes 3 % (0-10); Neutrophil 88 % (42-75); Nucleated RBC 4 % (0); PLT Morphology Comment Appears Adequate; Platelet Count 342 thou/uL (130-400); RBC Distribution Width 21.7 % (11.5-14.5); Red Blood Cell (RBC) Count 1.96 mill/uL (4.70-6.10); White Blood Cell (WBC) Count 10.8 thou/uL (4.8-10.8)
[2018-02-11] MEDS ORDERED: Sodium Chloride 0.9% 1,000 ML IV SCH (03:07)
[2018-02-11] MEDS ORDERED: Acetaminophen 325 MG TAB PO PRN (03:07)
[2018-02-11] MEDS ORDERED: Ondansetron HCl/PF 4 MG/2 ML Vial IVP PRN (03:07)
[2018-02-11] MEDS ORDERED: Ondansetron ODT 4 MG TAB SL PRN (03:07)
[2018-02-11 03:25] VITALS: BP 65/34; TEMP 92.6
--- NOTE | 2018-02-11 06:34 | RAD ---
RADIOGRAPH CHEST 1 VIEW: Date: 02/10/2018 Time: 11:20 p.m. HISTORY: A 72-year-old male with dyspnea. COMPARISON: 08/08/2013 FINDINGS: There is a prominent pulmonary scar in the right upper lobe. A small calcified granuloma is again no paty at the lateral aspect of the left mid lung zone. No cardiomegaly or pulmonary edema. No acute a ir space density. Ectatic, tortuous thoracic aorta. No pneumothorax. There is a new finding of a d eep sulcus sign projecting inferior to the left hemidiaphragmatic border. This could be an anteriorl y positioned pneumothorax, if the patient is positioned supine for this radiograph, but the image is labeled as semi-upright. There is no other interval change. There is hyperinflation and hyper lucency of the lungs, consistent with COPD. IMPRESSION: 1. Emphysema. 2. Prominent right upper lobe pulmonary scar (which was a site of severe necrotizing pneumonia in 20 10). 3. Deep sulcus sign at the left base. This may or may not represent a pneumothorax. Consider uprig ht chest radiograph in inspiration and expiration. 4. No other potentially acute findings. OTILIA [] POS: EDNA
--- NOTE | 2018-02-11 10:19 | HP ---
CHIEF COMPLAINT: Liver cancer and shortness of breath. HISTORY OF PRESENT ILLNESS: The patient is a 72-year-old male with a history of liver cancer who was just previously discharged from the hospital after it was decided he was a poor candidate for any in tervention. He was to be on palliative measures. The patient started experiencing significant short ness of breath and he was subsequently brought back to the hospital. He was admitted to address the shortness of breath for comfort measures and potentially get a hospice consult. However, the patient appears to be actively in the process of passing at this time. For a complete past medical, family and social history, please see the history and physical exam and discharge summary from Dr. Crockett dated 02/04/2018. Briefly, the patient had a history of hepatitis C and presented with some GI symptoms and was discove red to have portal vein thrombosis and liver cancer. He was evaluated by Oncology and it was felt th at he had advanced disease and was not a good candidate for aggressive intervention. PHYSICAL EXAMINATION: VITAL SIGNS: Currently, temperature was 92.6, pulse of 77, respirations are 24, and BP was 65/34. GENERAL: On my exam, the patient is unresponsive. He is maintaining a carotid pulse, but appears to be substantially apneic. HEART: His heart is not audible. LUNGS: His lung exam is not possible. Family members, multiple of them are present at the bedside. The patient's labs were noted. IMPRESSION AND PLAN: Advanced end-stage liver cancer in a patient who is a DNR now, comfort measures . The patient is actively in the process of dying now and will likely be a matter of minutes. The p atient's family is aware and appropriately grieving at the bedside. He appears to be comfortable. N o other interventions appear to be required at this time.
--- NOTE | 2018-02-11 12:35 | DS ---
DATE OF ADMISSION: 02/11/2018 DATE OF DISCHARGE: 02/11/2018 DISCHARGE DIAGNOSES: 1. Advanced liver cancer. 2. History of hepatitis C. HOSPITAL COURSE: The patient is a 72-year-old male who initially presented on 02/01/2018 with some G I complaints and was found to have a portal vein thrombosis and liver cancer. He was evaluated by On cology, but was felt not to be a candidate for any aggressive intervention and subsequently the patie nt was discharged home on palliative care. Subsequently, he developed some worsening shortness of br eath and family brought him back to the hospital. At that time, the patient was hypotensive. He als o appeared to have some lower GI bleeding. The patient was subsequently admitted to the hospital for primarily comfort measures after receiving some fluid. The patient remained hypotensive in spite of the fluids. He had a number of other metabolic abnormalities. Ultimately, the patient went apneic and maintained a pulse for a period of time, but subsequent at 0807 the patient was reexamined. He h ad no spontaneous respirations. He had no cardiac sounds. He had no carotid pulse palpated and no r eflexes and was pronounced at 8:07 a.m. Multiple family members were in the room and at the bedside.
--- NOTE | 2018-02-11 14:32 | PQF ---
DATE: 02-11-18 ATTN: DR. MARIBEL ABDI Please exercise your independent, professional judgment in responding to the clarification form. Clinical indicators are provided on the bottom of this form for your review Please check appropriate box(s): [ ] Encephalopathy: Type: [ ] Acute [ ] Subacute [ ] Chronic Etiology: [ ] Metabolic [ ] Toxic [ x] Hepatic with Coma [ ] Hepatic w/o Coma [ ] Hypoxic [ ] Transient Alteration of Awareness [ ] Other diagnosis [ ] Unable to determine In addition, please specify: Present on Admission (POA): [ x] Yes [ ] No [ ] Unable to determine For continuity of documentation, please document condition throughout progress notes and discharge summary. Thank You. CLINICAL INDICATORS - SIGNS / SYMPTOMS / LABS ER: PATIENT ALERT AND ORIENTED X2, LETHARGY, CONFUSION, REPORTS MENTAL STATUS CHANGES, END STAGE LIVER CANCER H&P: ON MY EXAM, THE PATIENT IS UNRESPONSIVE. NURSE ASSESSMENT 02-11: O2 2L PER NASAL CANNULA RISK FACTORS: H&P: HX OF LIVER CA, HE WAS ADMITTED TO ADDRESS THE SOB FOR COMFORT MEASURES AND POTENTIALLY GET HOSPICE CONSULT. NOTE: HE HAD A NUMBER OF OTHER METABOLIC ABNORMALITIES. TREATMENTS: H&P: HX OF LIVER CA, HE WAS ADMITTED TO ADDRESS THE SOB FOR COMFORT MEASURES AND POTENTIALLY GET HOSPICE CONSULT. NURSE ASSESSMENT 02-11: O2 2L PER NASAL CANNULA ER: 2 NS LITERS IVF (This form is maintained as a part of the permanent medical record) 2014 [facility], [place]. All Rights Reserved ISI [email or web address] Office: [phone] [facility]
--- NOTE | 2018-02-11 14:45 | PQF ---
DATE: 02-11-18 ATTN: DR. MARIBEL ABDI Please exercise your independent, professional judgment in responding to the clarification form. Clinical indicators are provided on the bottom of this form for your review Please check appropriate box(s): [ ] Acute Respiratory Failure: [ ] with Hypoxia[ ] with Hypercapnia [ ] Acute Respiratory Failure due to: (etiology) [ ] Other diagnosis [ x] Unable to determine In addition, please specify: Present on Admission (POA): [ x] Yes [ ] No [ ] Unable to determine For continuity of documentation, please document condition throughout progress notes and discharge summary. Thank You. CLINICAL INDICATORS - SIGNS / SYMPTOMS / LABS ER: EVALUATION OF SHORTNESS OF BREATH, SOB X 2-3 DAYS, WORSE TODAY, DYSPNEA ON EXERTION ER: RESP: 22, 21, 22, H&P: HE WAS ADMITTED TO ADDRESS THE SHORTNESS OF BREATH FOR COMFORT MEASURES AND POTENTIALLY GET A HOSPICE CONSULT. RR: 24, APPEARS TO BE SUBSTANTIALLY APNEIC RISK FACTORS: ER: END STAGE LIVER DISEASE, COMFORT MEASURES, SMOKER TREATMENTS:H&P: HE WAS ADMITTED TO ADDRESS THE SHORTNESS OF BREATH FOR COMFORT MEASURES AND POTENTIALLY GET A HOSPICE CONSULT. (This form is maintained as a part of the permanent medical record) 2015 [employer]. All Rights Reserved ISI [email or web address] Office: [phone] [email or web address]
== END 2018-02-11 08:07 | disposition expired | DRG 951 ==
LOC: ERS 23:45 → T4-A 02-11 02:00
PROVIDERS: ADMIT Internal Medicine; ATTEND Internal Medicine
DX: Z51.5 Encounter for palliative care (principal); K72.91 Hepatic failure, unspecified with coma; C22.8 Malignant neoplasm of liver, primary, unspecified as to type; B19.20 Unspecified viral hepatitis C without hepatic coma; Z66 Do not resuscitate
CPT/HCPCS: 36415; 36416; 71045; 80053; 82140; 82553; 83880; 84484; 85025; 85610; 85730; 93005; 96361; 96374